=== PATIENT | female | born 1975 | race Caucasian/White ===

== ENCOUNTER 2017-07-02 14:45 | Emergency (ER) | payer BC, OTHER ==
[~2017-07-02] VITALS: Ht 152.4 cm; Wt 59.0 kg
[~2017-07-02 14:45] MED LIST: AZITHROMYCIN250 MG ORAL; MACROBID100 MG ORAL; PROMETHAZINE-C118 M1 ORAL
[2017-07-02] MEDS ORDERED: LOPID600 MG ORAL (15:22)
[2017-07-02] MEDS ORDERED: Albuterol ud Inhalation HHN ONE (15:30)
--- NOTE | 2017-07-02 15:57 | Emergency Room Report ---
History of Present Illness General Chief Complaint: Pain Source: Patient Present Illness HPI 41 YO Female presents to the ED c/o nasal congestion/stuffy nose with persistent cough x 4 days. pt. states her cough is worse at night . denies acid reflux. denies fevers or chills. reports hx of allergies otherwise denies asthma. reports that her voice has been "raspy". pt. denies recent travel or ill contacts. denies LE edema. Denies CP, Palpitations, LOC, AMS, dizziness, Changes in Vision, Sensation, paresthesias, or a sudden severe headache. Allergies: Coded Allergies: No Known Allergies (Unverified , 08/18/14) Patient History Past Medical History: see triage record Past Surgical History: none Pertinent Family History: none Last Menstrual Period: Nine days ago Now: No Reviewed Nursing Documentation: PMH: Agreed, PSxH: Agreed Review of Systems All Other Systems: negative except mentioned in HPI Physical Exam Vital Signs Date Time Temp Pulse Resp B/P (MAP) Pulse Ox O2 Delivery O2 Flow Rate FiO2 07/02/17 15:18 98.1 80 16 116/72 99 Room Air Sp02 EP Interpretation: reviewed, normal General Appearance: no apparent distress, alert, GCS 15, non-toxic Head: normocephalic, atraumatic Eyes: bilateral eye normal inspection, bilateral eye PERRL ENT: hearing grossly normal, normal pharynx, no angioedema, normal voice, TMs + canals normal, uvula midline, moist mucus membranes, nasal congestion - mild bilateral nasal congestion with patent nares bialterally. no appreciable unilateral sinus ttp. Neck: full range of motion, no meningismus, supple/symm/no masses Respiratory: chest non-tender, lungs clear, normal breath sounds, speaking full sentences, wheezing - scant wheezing bilaterally Cardiovascular #1: regular rate, rhythm, no edema Gastrointestinal: non tender, soft Rectal: deferred Musculoskeletal: back normal, gait/station normal, normal range of motion, non- tender Neurologic: alert, oriented x3, responsive, motor strength/tone normal, sensory intact, speech normal Skin: normal color, no rash, warm/dry, well hydrated Lymphatic: no adenopathy Medical Decision Making PA Attestation Dr. Huynh is my supervising Physician whom patient management has been discussed with. Diagnostic Impression: Primary Impression: Cough Additional Impression: Acute bronchitis Qualified Codes: J20.9 - Acute bronchitis, unspecified ER Course 41 YO Female presents to the ED c/o nasal congestion/stuffy nose with persistent cough x 4 days. pt. states her cough is worse at night . denies acid reflux. denies fevers or chills. reports hx of allergies otherwise denies asthma. reports that her voice has been "raspy". pt. denies recent travel or ill contacts. denies LE edema. Denies CP, Palpitations, LOC, AMS, dizziness, Changes in Vision, Sensation, paresthesias, or a sudden severe headache. Ddx considered but are not limited to URI, pneumonia, PE, strep pharyngitis, meningitis. Vital signs: Pt.is afebrile VS are WNL H&PE are most consistent with bronchitis ORDERS: none required at this time, the diagnosis is clinical ED INTERVENTIONS: -Albuterol HHN --d/w pt. the possibility that acid reflux may be cause of cough that is worse at night and laryngitis/raspy voice. DISCHARGE: At this time pt. is stable for d/c to home. Will provide printed patient care instructions, and any necessary prescriptions. Care plan and follow up instructions have been discussed with the patient prior to discharge. Last Vital Signs Date Time Temp Pulse Resp B/P (MAP) Pulse Ox O2 Delivery O2 Flow Rate FiO2 07/02/17 15:18 98.1 80 16 116/72 99 Room Air Disposition: HOME, SELF-CARE Condition: Stable Scripts Albuterol Sulfate* (ALBUTEROL SULFATE MDI*) 8.5 Gm Hfa.aer.ad 2 PUFF INH Q6H, #1 INH 0 Refills Prov: Nelda Euceda P.A. 07/02/17 Ranitidine Hcl* (ZANTAC*) 150 Mg Tablet 150 MG ORAL TWICE A DAY, #30 TAB Prov: Nelda Euceda P.A. 07/02/17 Codeine/Promethazine Hcl* (PROMETHAZINE-CODEINE SYRUP*) 118 Ml Syrup 5 ML ORAL Q6H Y for For Cough, #120 ML 0 Refills Prov: Nelda Euceda P.A. 07/02/17 Patient Instructions: Acute Bronchitis, [id number], Heartburn, [id number], Shortness of Breath, [id number] Additional Instructions: Take medications as directed. Follow up with a Primary Care Provider in 3-5 days, even if your symptoms have resolved. --Please review list of primary care clinics, if you do not already have a primary care provider Return sooner to ED if new symptoms occur, or current symptoms become worse. Do not drink alcohol, drive, or operate heavy machinery while taking Cough as this may cause drowsiness. - Please note that this Emergency Department Report was dictated using [employer] dispatcher technology software, occasionally this can lead to erroneous entry secondary to interpretation by the dictation equipment. Nelda Euceda Jul 02, 2017 15:57
[2017-07-02] MEDS ORDERED: ZANTAC150 MG ORAL (15:59)
[2017-07-02] MEDS ORDERED: PROMETHAZINE-C118 M1 ORAL (15:59)
[2017-07-02] MEDS ORDERED: ALBUTEROL SULF8.5 GM INH (15:59)
[2017-07-02 16:37] VITALS: BP 112/71
== END 2017-07-02 16:37 | disposition home or self-care (01) ==
LOC: EMR 16:00
DX: J20.9 Acute bronchitis, unspecified (principal)
CPT/HCPCS: 94640; 94664; 99283

== ENCOUNTER 2017-07-18 06:47 | Emergency (ER) | payer OTHER ==
[~2017-07-18] VITALS: Ht 153 cm; Wt 56.7 kg
[~2017-07-18 06:47] MED LIST changes: +ALBUTEROL SULF8.5 GM INH; +LOPID600 MG ORAL; +ZANTAC150 MG ORAL
[2017-07-18] MEDS ORDERED: Bacitracin Oint UD TOPIC ONE (07:15)
[2017-07-18] MEDS ORDERED: Tetanus/Diptheria/Pertussis Vaccine 0.5ml Syr IM ONE (07:15)
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
[2017-07-18] MEDS ORDERED: IBUPROFEN400 M1 PO (07:25)
[2017-07-18] MEDS ORDERED: BACITRACIN ZIN1 EACH TOPIC (07:25)
[2017-07-18 08:27] VITALS: BP 129/76
[2017-07-18 08:29] VITALS: BP 118/72
== END 2017-07-18 08:30 | disposition home or self-care (01) ==
LOC: EMR 07:22
DX: S00.93XA Contusion of unspecified part of head, initial encounter (principal); S10.91XA Abrasion of unspecified part of neck, initial encounter; Z23 Encounter for immunization; Y04.2XXA Assault by strike against or bumped into by another person, initial encounter; Y92.811 Bus as the place of occurrence of the external cause
CPT/HCPCS: 90471; 90715; 99283

== ENCOUNTER 2018-07-16 18:42 | Emergency (ER) | payer OTHER ==
[~2018-07-16] VITALS: Ht 152.4 cm; Wt 49.9 kg
[~2018-07-16 18:42] MED LIST changes: +BACITRACIN ZIN1 EACH TOPIC; +IBUPROFEN400 M1 PO
[2018-07-16] MEDS ORDERED: GEMFIBROZIL600 MG ORAL (18:55)
[2018-07-16] MEDS ORDERED: Morphine Sulfate 4mg/ml Inj (IV/IM USE ONLY) IVP ONE (19:00)
[2018-07-16] MEDS ORDERED: Ketorolac 30mg Inj IV ONE (19:00)
[2018-07-16] MEDS ORDERED: Isovue-300 100ml vial INJ PRN (19:00)
--- NOTE | 2018-07-16 19:14 | NUR ---
ED Nurse Note: Pt came in the ER from home due to abdominal pain around umbilical area x24 hrs 10/10 sugar. No complaint of n/v/d. AOx4, Vss sugar. Will cont to monitor.
[2018-07-16 19:15] VITALS: BP 115/75
--- NOTE | 2018-07-16 19:15 | NUR ---
ED Nurse Note: Received report from Mesha RN. Pt AO4. ANN MARIE. GEOVANNY. Denies SOB.
--- NOTE | 2018-07-16 19:15 | NUR ---
HAND-OFF: Report given to Jeyson Mason RN.ED Nurse Note:
[2018-07-16 19:28] LABS: BASOPHILS % (AUTO) 1.7 % (0.0-2.0); EOSINOPHILS % (AUTO) 1.1 % (0.0-3.0); HEMATOCRIT 37.7 % (37.0-47.0); HEMOGLOBIN 12.9 G/DL (12.0-16.0); LYMPHOCYTES % (AUTO) 25.2 % (20.0-45.0); MEAN CORPUSCULAR VOLUME 89 FL (80-99); MONOCYTES % (AUTO) 6.5 % (1.0-10.0); NEUTROPHILS % (AUTO) 65.5 % (45.0-75.0); PLATELET COUNT 297 K/UL (150-450); RED BLOOD COUNT 4.25 M/UL (4.20-5.40); RED CELL DISTRIBUTION WIDTH 11.1 % (11.6-14.8); WHITE BLOOD COUNT 6.8 K/UL (4.8-10.8)
[2018-07-16 20:02] LABS: ANION GAP 10 mmol/L (5-15); BLOOD UREA NITROGEN 16 mg/dL (7-18); CALCIUM 9.5 MG/DL (8.5-10.1); CARBON DIOXIDE 27 MMOL/L (21-32); CHLORIDE 103 MMOL/L (98-107); CREATININE 0.9 MG/DL (0.55-1.30); POTASSIUM 3.7 MMOL/L (3.5-5.1); SODIUM 140 MMOL/L (136-145)
[2018-07-16 20:06] LABS: ALANINE AMINOTRANSFERASE 15 U/L (12-78); ALBUMIN 4.3 G/DL (3.4-5.0); ALKALINE PHOSPHATASE 70 U/L (46-116); ASPARTATE AMINO TRANSFERASE 15 U/L (15-37); BILIRUBIN,TOTAL 0.2 MG/DL (0.2-1.0)
--- NOTE | 2018-07-16 20:20 | NUR ---
ED Nurse Note: Urine collected; sent down to lab.
[2018-07-16 20:44] LABS: APPEARANCE,URINE SLIGHTLY CLOUDY; BILIRUBIN, URINE NEGATIVE (NEGATIVE); COLOR,URINE PALE YELLOW; GLUCOSE, URINE (UA) NEGATIVE (NEGATIVE); KETONES,URINE 1+ (NEGATIVE); LEUKOCYTE ESTERASE ,URINE NEGATIVE (NEGATIVE); NITRITE,URINE NEGATIVE (NEGATIVE); PH,URINE 7 (4.5-8.0); PROTEIN,URINE 1+ (NEGATIVE); UROBILINOGEN,URINE 1 MG/DL (0.0-1.0)
--- NOTE | 2018-07-16 22:03 | Emergency Room Report ---
History of Present Illness General Chief Complaint: Abdominal Pain Source: Patient Present Illness HPI Patient is a 42-year-old female presented after increased lower abdominal pain. Patient reports of increased pain periumbilical area as well as from her into the left lower quadrant. Patient had prior history of cholecystectomy laparoscopically performed approximately 4 years ago. She had not been vomiting but has been feeling increasingly nauseated.Patient works in the emergency department.She reportedly been having increased pain after eating. Allergies: Coded Allergies: No Known Allergies (Unverified , 07/16/18) Patient History Past Medical History: see triage record Last Menstrual Period: 07/09/18 Now: No Reviewed Nursing Documentation: PMH: Agreed; PSxH: Agreed Nursing Documentation-PMH Past Medical History: No Stated History Hx Cardiac Problems: No - HYPERLIPIDEMIA Review of Systems All Other Systems: negative except mentioned in HPI Physical Exam Vital Signs Date Time Temp Pulse Resp B/P (MAP) Pulse Ox O2 Delivery O2 Flow Rate FiO2 07/16/18 18:50 98.2 90 16 118/82 96 Room Air Sp02 EP Interpretation: reviewed, normal General Appearance: normal inspection, well appearing, no apparent distress, alert, GCS 15, non-toxic Head: atraumatic ENT: normal ENT inspection, hearing grossly normal, normal voice Neck: normal inspection, full range of motion, supple, no bony tend Respiratory: normal inspection, lungs clear, normal breath sounds, no respiratory distress, no retraction, no wheezing Cardiovascular #1: regular rate, rhythm, no edema Gastrointestinal: normal inspection, normal bowel sounds, non tender, soft, no guarding, no hernia Genitourinary: no CVA tenderness Musculoskeletal: normal inspection, back normal, normal range of motion Neurologic: normal inspection, alert, oriented x3, responsive, matchbook assembler III-XII nml as tested, speech normal Psychiatric: normal inspection, judgement/insight normal, mood/affect normal Skin: normal inspection, normal color, no rash Medical Decision Making ER Course . ..Patient presented for abdominal pain. Differential diagnoses included ischemic bowel, appendicitis, perforated viscus, abdominal aortic aneurysm, inferior myocardial infarction, viral gastroenteritis because of complexity of patient's case laboratory testing and imaging studies were ordered.Labs or studies were essentially unremarkable. CT abdomen pelvis is ordered to the patient's severe pain. CT abdomen pelvis read by radiology showed cholecystectomy with mild intra-hepatic duct dilation there is no evidence of GI or urinary tract obstruction there was a normal appendix as well as small fatty umbilical hernia Labs Test 07/16/18 19:15 07/16/18 20:20 White Blood Count 6.8 K/UL (4.8-10.8) Red Blood Count 4.25 M/UL (4.20-5.40) Hemoglobin 12.9 G/DL (12.0-16.0) Hematocrit 37.7 % (37.0-47.0) Mean Corpuscular Volume 89 FL (80-99) Mean Corpuscular Hemoglobin 30.4 PG (27.0-31.0) Mean Corpuscular Hemoglobin Concent 34.3 G/DL (32.0-36.0) Red Cell Distribution Width 11.1 % (11.6-14.8) Platelet Count 297 K/UL (150-450) Mean Platelet Volume 6.8 FL (6.5-10.1) Neutrophils (%) (Auto) 65.5 % (45.0-75.0) Lymphocytes (%) (Auto) 25.2 % (20.0-45.0) Monocytes (%) (Auto) 6.5 % (1.0-10.0) Eosinophils (%) (Auto) 1.1 % (0.0-3.0) Basophils (%) (Auto) 1.7 % (0.0-2.0) Sodium Level 140 MMOL/L (136-145) Potassium Level 3.7 MMOL/L (3.5-5.1) Chloride Level 103 MMOL/L (98-107) Carbon Dioxide Level 27 MMOL/L (21-32) Anion Gap 10 mmol/L (5-15) Blood Urea Nitrogen 16 mg/dL (7-18) Creatinine 0.9 MG/DL (0.55-1.30) Estimat Glomerular Filtration Rate > 60 mL/min (>60) Glucose Level 94 MG/DL (74-106) Calcium Level 9.5 MG/DL (8.5-10.1) Total Bilirubin 0.2 MG/DL (0.2-1.0) Aspartate Amino Transf (AST/SGOT) 15 U/L (15-37) Alanine Aminotransferase (ALT/SGPT) 15 U/L (12-78) Alkaline Phosphatase 70 U/L (46-116) Total Protein 8.5 G/DL (6.4-8.2) Albumin 4.3 G/DL (3.4-5.0) Globulin 4.2 g/dL Albumin/Globulin Ratio 1.0 (1.0-2.7) Lipase 172 U/L (73-393) Urine Color Pale yellow Urine Appearance Slightly cloudy Urine pH 7 (4.5-8.0) Urine Specific [place] 1.015 (1.005-1.035) Urine Protein 1+ (NEGATIVE) Urine Glucose (UA) Negative (NEGATIVE) Urine Ketones 1+ (NEGATIVE) Urine Blood Negative (NEGATIVE) Urine Nitrite Negative (NEGATIVE) Urine Bilirubin Negative (NEGATIVE) Urine Urobilinogen 1 MG/DL (0.0-1.0) Urine Leukocyte Esterase Negative (NEGATIVE) Urine RBC 0-2 /HPF (0 - 2) Urine WBC 2-4 /HPF (0 - 2) Urine Squamous Epithelial Cells Many /LPF (NONE/OCC) Urine Amorphous Sediment Many /LPF (NONE) Urine Bacteria Few /HPF (NONE) Urine HCG, Qualitative Negative (NEGATIVE) Last Vital Signs Date Time Temp Pulse Resp B/P (MAP) Pulse Ox O2 Delivery O2 Flow Rate FiO2 07/16/18 19:15 98.2 79 16 115/75 96 Room Air Status: improved Disposition: HOME, SELF-CARE Condition: Stable Referrals: NON PHYSICIAN (PCP) Felipe Flor MD Jul 16, 2018 22:03
[2018-07-16] MEDS ORDERED: DICYCLOMINE HCL10 MG PO (22:05)
[2018-07-16] MEDS ORDERED: ZOFRAN4 MG ORAL (22:05)
[2018-07-16 22:20] VITALS: BP 115/75
--- NOTE | 2018-07-16 22:20 | NUR ---
ED Nurse Note: Patient cleared for discharge per ERMD. AO4. NAD. VSS. Patent given prescriptions and discharge instructions; veralized understanding. IV & ID band removed. Patient ambulated out with all personal belongings with steady gait.
--- NOTE | 2018-07-17 01:31 | NUR ---
ED Nurse Note: Received report from FLORES Zimmer. Pt AO4. NAD. VSSHannah AMADO. Addendum: 07/17/18 at 0133 by LCRISOSTOM Wrong time
--- NOTE | 2018-07-17 09:59 | Diagnostic Imaging Report ---
Indication: Abdominal pain Technique: Continuous helical transaxial imaging of the abdomen and pelvis was obtained from the lung bases to the pubic symphysis during intravenous contrast administration. Coronal 2-D reformats were also obtained. Study obtained in a Siemens sensation [address] Automatic Exposure Control was utilized. Total Dose length Product (DLP): 578.[address] Dose Index Volume (CTDIvol): 10.92 mGy Comparison: None Findings: Lung bases are clear. The liver and spleen are unremarkable. Cholecystectomy noted. Pancreas is unremarkable. There is no adrenal mass. No hydronephrosis identified. Bladder is nondistended. The uterus is noted. Appendix may be partially visualized. There are no secondary signs of acute appendicitis. IMPRESSION: No acute findings appreciated. Status post cholecystectomy. [facility] has communicated the preliminary results to the Emergency Department. Their findings are largely concordant with this report. The CT scanner at [facility] is accredited by the [employer] and the scans are performed using dose optimization techniques as appropriate to a performed exam including Automatic Exposure control.
== END 2018-07-16 22:20 | disposition home or self-care (01) ==
LOC: EMR 19:11
DX: R10.30 Lower abdominal pain, unspecified (principal); Z90.49 Acquired absence of other specified parts of digestive tract; R11.0 Nausea; E78.5 Hyperlipidemia, unspecified
CPT/HCPCS: 36415; 74177; 80053; 81003; 81025; 83690; 85025; 96361; 96374; 96375; 99284; J1885; J2270; J2405; Q9967; S0028